=== PATIENT | female | born 1985 | race Caucasian/White ===

== ENCOUNTER 2018-12-27 16:50 | Observation (INO) ==
[2018-12-27] MEDS ORDERED: 0.9 % Sodium Chloride 1,000 ML IVC ONE (17:00)
--- NOTE | 2018-12-27 17:04 | Emergency Department Note ---
Disposition Clinical Impression: Bronchopneumonia Disposition: Admitted As Inpatient Condition: Serious Time of Disposition: 19:09 ( will admit) Chest Pain HPI - General Chief Complaint: ED Chest Pain Stated Complaint: fever and chest pain x 3 days Time Seen by Provider: 12/27/18 16:53 Source: patient Mode of arrival: ambulatory Limitations: no limitations Vital Signs Reviewed: Yes Nursing Notes Reviewed: Yes - History of Present Illness HPI Narrative: 33-year-old female who presents in the emergency department with complaints of fever for approximately 3 days and also ongoing chest pain associated with that. Patient complains of pain with coughing and pain with deep inspiration. She states that she has a history of sarcoidosis, and is on 2 different inhalers. She was taken off her steroids, but denies being on any immunosuppressive medications. Patient is a smoker and smokes approximately 1 pack a day. Patient does complain of some mild shortness of breath. But mostly pain with coughing Onset (ago): day(s) (3) Duration: intermittent Onset: during rest Pain Location: substernal Severity: moderate Severity scale (1-10): 5 Quality: sharp Pain Radiation: none Improves with: nothing Worsens with: nothing Associated symptoms: Reports: dyspnea, fever, cough Treatments prior to arrival chest pain: none - Related Data Home Medications Medication Instructions Recorded Confirmed Fluticasone/Vilanterol [Breo 1 each IH QID 05/12/18 12/27/18 Ellipta 200-25 Mcg INH] Albuterol Sulfate [Ventolin Hfa] 1 puff IH AD PRN 11/13/18 12/27/18 DiphenhydraMINE [Benadryl] 25 mg PO HS 11/13/18 12/27/18 LevETIRAcetam [Keppra] 500 mg PO BID 11/13/18 12/27/18 Allergies Allergy/AdvReac Type Severity Reaction Status Date / Time azithromycin Allergy Seizure Verified 07/09/18 19:46 tramadol [From Ultram] Allergy Seizure Verified 07/09/18 19:46 Constitutional: Denies: fever, chills, weakness, weight change Eyes: Denies: eye pain, eye discharge, vision change ENT ED: Denies: ear pain, throat pain, dental pain, hearing loss, epistaxis, congestion, dysphagia Cardiovascular: Reports: palpitations. Denies: chest pain, dyspnea on exertion, edema, syncope Respiratory: Reports: cough, dyspnea. Denies: wheezes, hemoptysis, stridor Gastrointestinal: Denies: abdominal pain, nausea, vomiting, diarrhea, constipation, hematemesis, melena, hematochezia Genitourinary: Denies: dysuria, frequency, hematuria, discharge Musculoskeletal: Denies: back pain, neck pain, arthralgia, myalgia Integumentary: Denies: rash, abrasion, lesions Neurological: Denies: headache, weakness, numbness, paresthesias, confusion, abnormal gait, vertigo Psychiatric: Denies: anxiety, depression, suicidal thoughts, homicidal thoughts, auditory hallucinations, visual hallucinations Endocrine: Denies: fatigue Hematological/Lymphatic: Denies: easy bleeding, easy bruising Allergic/Immunologic: Denies: facial swelling, urticaria Chest Pain PMH - Past Medical History Medical history: Reports: asthma, seizures, other Psychiatric history: Reports: depression - Social History Smoking Status: Current every day smoker Alcohol use: Reports: none Drug use: Reports: none Physical Exam - General Limitations: no limitations General appearance: alert, in no apparent distress - Head Head exam: atraumatic, normocephalic, normal inspection - Eye Eye exam: Present: normal appearance, PERRL, EOMI - Expanded Eye Exam Pupils: Left: reactive - ENT ENT exam: normal exam, normal oropharynx, mucous membranes moist - Expanded ENT Exam External ear exam: Present: normal external inspection Mouth exam: Present: normal external inspection Teeth exam: Present: normal inspection Throat exam: Present: normal inspection - Neck Neck exam: Present: normal inspection, full ROM, trachea midline - Chest Chest inspection: Present: normal inspection, symmetric chest wall rise - Respiratory Respiratory exam: Present: wheezes, other (Wheezing noted throughout bilateral lung griffin) - Cardiovascular Cardiovascular exam: Present: regular rate, tachycardia, normal heart sounds - Abdominal Exam Abdominal exam: Present: soft, Non-Tender. Absent: tenderness, distention, guarding, rebound, rigidity - Extremities Exam Extremities exam: Present: normal inspection, full ROM. Absent: tenderness, pedal edema - Expanded Upper Extremity Exam Shoulder exam: Present: normal inspection, full ROM Arm exam: Present: normal inspection, full ROM Elbow exam: Present: normal inspection, full ROM Forearm/Wrist exam: Present: normal inspection, full ROM Hand exam: Present: normal inspection, full ROM Vascular exam: Normal: capillary refill, radial pulse - Expanded Lower Extremity Exam Hip/Pelvis exam: Present: normal inspection, full ROM Upper leg exam: Present: normal inspection, full ROM Knee exam: Present: normal inspection, full ROM Lower leg exam: Present: normal inspection, full ROM Ankle exam: Present: normal inspection, full ROM Foot/toe exam: Present: normal inspection, full ROM Neurovascular/Tendon exam: Absent: motor deficit, sensory deficit, tendon deficit - Back Exam Back exam: Present: normal inspection, full ROM. Absent: tenderness - Neurological Exam Neurological exam: Present: alert, oriented X3 - Expanded Neurological Exam Patient oriented to: Present: person, place, time Coma Scale Eye Opening: Spontaneous Coma Scale Motor Response: Obeys Commands Coma Scale Verbal Response: Oriented Coma Scale Total: 15 - Psychiatric Psychiatric exam: Present: normal affect, normal mood - Skin Skin exam: Present: warm, dry, intact, normal color Course Vital Signs Temperature 99.9 F H 12/27/18 16:56 Pulse Rate 116 12/27/18 16:56 Respiratory Rate 18 12/27/18 16:56 Blood Pressure 111/80 12/27/18 16:56 O2 Sat by Pulse Oximetry 94 12/27/18 16:56 Temperature 98.1 F 12/27/18 18:49 Pulse Rate 98 12/27/18 19:18 Respiratory Rate 18 12/27/18 19:18 Blood Pressure 96/60 12/27/18 19:18 O2 Sat by Pulse Oximetry 99 12/27/18 19:18 Oxygen Delivery Oxygen Delivery Nasal Cannula Chest Pain - MDM Narrative Medical decision making narrative: Labs are obtained including blood culture 2 patient initially was given 1 L of fluids wide open, and received a second dose at 125 mL's an hour. After blood culture patient was given Rocephin 2 g IV. She is converted to Levaquin 500 mg IV daily on the floor. Chest x-ray read by radiology was concerning for possible malignancy, as a result CT of chest without contrast obtained which showed patient had pneumonia. - Differential Diagnosis Likely: pneumothorax, atypical chest pain, costalchondritis - Medical Records Medical records reviewed: Yes I reviewed the patient's medical records. - Lab Data Result diagrams: 12/27/18 17:29 12/27/18 17:29 Lab Results 12/27/18 12/27/18 12/27/18 Range/Units 17:29 17:29 17:29 WBC 20.8 H (4.3-11.1) K/mcL RBC 4.15 (3.82-4.97) M/mcL Hgb 12.3 (11.5-15.4) g/dL Hct 36.5 (35.3-44.9) % MCV 88.0 (83.0-100.0) fL MCH 29.6 (28.0-33.3) pg MCHC 33.7 (31.6-35.5) g/dL RDW 12.8 (11.5-14.5) % Plt Count 303 (140-400) K/mcL MPV 10.6 (9.4-12.4) fL Immature Gran % 0.5 (0-4) % Seg Neutrophils % 77.2 % Lymphocytes % 10.4 % Monocytes % 9.9 % Eosinophils % 1.5 % Basophils % 0.5 % Neutrophils # 16.1 H (1.6-8.9) K/mcL Lymphocytes # 2.2 (0.6-4.6) K/mcL Monocytes # 2.1 H (0.0-1.3) K/mcL Eosinophils # 0.3 (0.0-0.6) K/mcL Basophils # 0.1 (0.0-0.2) K/mcL PT 15.4 H (9.4-12.1) Seconds INR 1.4 APTT 34.0 (26.0-36.0) Seconds D-Dimer (0-500) ng/mLFEU Sodium (136-145) mEq/L Potassium (3.5-5.1) mEq/L Chloride (98-107) mEq/L Carbon Dioxide (23-29) mEq/L BUN (6-20) mg/dL Creatinine (0.60-1.20) mg/dL Est GFR ( Amer) (> 60) Est GFR (Non-Af Amer) (> 60) BUN/Creatinine Ratio (6-26) Glucose (70-105) mg/dL Calculated Osmolality (280-300) Lactic Acid (0.5-2.2) mmol/L Calcium (8.6-10.3) mg/dL Troponin I (< 0.04) ng/mL B-Natriuretic Peptide 14 (Less than 100) pg/mL 12/27/18 12/27/18 12/27/18 Range/Units 17:29 17:29 17:29 WBC (4.3-11.1) K/mcL RBC (3.82-4.97) M/mcL Hgb (11.5-15.4) g/dL Hct (35.3-44.9) % MCV (83.0-100.0) fL MCH (28.0-33.3) pg MCHC (31.6-35.5) g/dL RDW (11.5-14.5) % Plt Count (140-400) K/mcL MPV (9.4-12.4) fL Immature Gran % (0-4) % Seg Neutrophils % % Lymphocytes % % Monocytes % % Eosinophils % % Basophils % % Neutrophils # (1.6-8.9) K/mcL Lymphocytes # (0.6-4.6) K/mcL Monocytes # (0.0-1.3) K/mcL Eosinophils # (0.0-0.6) K/mcL Basophils # (0.0-0.2) K/mcL PT (9.4-12.1) Seconds INR APTT (26.0-36.0) Seconds D-Dimer 419 (0-500) ng/mLFEU Sodium 132 L (136-145) mEq/L Potassium 3.3 L (3.5-5.1) mEq/L Chloride 100 (98-107) mEq/L Carbon Dioxide 26 (23-29) mEq/L BUN 6 (6-20) mg/dL Creatinine 0.49 L (0.60-1.20) mg/dL Est GFR ( Amer) > 60 (> 60) Est GFR (Non-Af Amer) > 60 (> 60) BUN/Creatinine Ratio 12 (6-26) Glucose 101 (70-105) mg/dL Calculated Osmolality 272 L (280-300) Lactic Acid 0.7 (0.5-2.2) mmol/L Calcium 8.6 (8.6-10.3) mg/dL Troponin I < 0.03 (< 0.04) ng/mL B-Natriuretic Peptide (Less than 100) pg/mL - Radiology Data Radiology results reviewed: Yes I reviewed the patient's radiology results. Chest x-ray by radiology reading showed an area in the right upper lobe that was concerning for malignancy as a result a CT of chest without contrast was obtained which showed the patient to have a right upper lobe pneumonia and no evidence of malignancy. - EKG Data EKG attestation: Yes I reviewed and interpreted this EKG. EKG results narrative: EKG shows a sinus tachycardic rhythm rate of 116 EKG shows normal: sinus rhythm Rate: tachycardia Rhythm: NSR [place]/QRS: normal
[2018-12-27] MEDS ORDERED: cefTRIAXone 2,000 MG in Water for inj. (sterile) 20 ML 20 ML IVP ONE (17:21)
[2018-12-27 17:39] LABS: Basophils # 0.1 K/mcL (0.0-0.2); Basophils % 0.5 %; Eosinophils # 0.3 K/mcL (0.0-0.6); Eosinophils % 1.5 %; Hematocrit 36.5 % (35.3-44.9); Hemoglobin 12.3 g/dL (11.5-15.4); Immature Granulocytes % 0.5 % (0-4); Lymphocytes # 2.2 K/mcL (0.6-4.6); Lymphocytes % 10.4 %; Mean Corpuscular HGB Conc 33.7 g/dL (31.6-35.5); Mean Corpuscular Hemoglobin 29.6 pg (28.0-33.3); Mean Platelet Volume 10.6 fL (9.4-12.4); Monocytes # 2.1 K/mcL (0.0-1.3); Monocytes % 9.9 %; Neutrophils # 16.1 K/mcL (1.6-8.9); Platelet Count 303 K/mcL (140-400); Red Blood Count 4.15 M/mcL (3.82-4.97); Red Cell Distribution Width 12.8 % (11.5-14.5); Segmented Neutrophils % 77.2 %
[2018-12-27 17:51] LABS: INR 1.4; Prothrombin Time 15.4 Seconds (9.4-12.1)
[2018-12-27 17:58] LABS: BUN/Creatinine Ratio 12 (6-26); Blood Urea Nitrogen 6 mg/dL (6-20); Calcium 8.6 mg/dL (8.6-10.3); Carbon Dioxide 26 mEq/L (23-29); Chloride 100 mEq/L (98-107); Glucose 101 mg/dL (70-105); Osmolality,Calculated 272 (280-300); Potassium 3.3 mEq/L (3.5-5.1); Sodium 132 mEq/L (136-145); Troponin I < 0.03 ng/mL (< 0.04); eGFR For Non-African Americans > 60 (> 60)
[2018-12-27] MEDS ORDERED: Naloxone 0.4 MG/ML INJ IVP PRN ×2 (19:00→20:28)
[2018-12-27] MEDS: levETIRAcetam 250 MG TABLET PO SCH (22:04)
[2018-12-27] MEDS: (Breo Ellipta 200-25 Mcg Inh) IH SCH (23:54)
[2018-12-28] MEDS: *HR* HYDROcodone/Acet 5/325 mg TABLET PO PRN ×4 (03:43→20:00)
[2018-12-28] MEDS: (Breo Ellipta 200-25 Mcg Inh) IH SCH ×4 (05:50→20:00)
[2018-12-28] MEDS: levETIRAcetam 250 MG TABLET PO SCH ×2 (08:23→20:00)
[2018-12-28] MEDS ORDERED: Levofloxacin 500 MG/100 ML 500 MG/100 ML BAG IVPB SCH ×2 (09:00)
--- NOTE | 2018-12-28 10:54 | Electrocardiograph Report ---
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
--- NOTE | 2018-12-28 12:17 | Internal Med History&Physical ---
Date of Encounter: 12/28/18 Time of Encounter: 11:30 Assessment and Plan (1) Pneumonia, community acquired Current visit: Yes Status: Acute She was given Levaquin and Rocephin in emergency room. Rocephin will be continued with IV doxycycline and lactobacillus. Qualifiers: Laterality: right Lung location: upper lobe of lung Qualified Code(s): J18.1 - Lobar pneumonia, unspecified organism (2) Hypokalemia Current visit: Yes Status: Acute Likely secondary to vomiting. Supplemental potassium will be given and labs monitored. (3) Weight loss Current visit: Yes Status: Acute TSH will be checked in a.m. She reports weight loss workup has been ordered by specialist without etiology found. (4) Seizure disorder Current visit: Yes Status: Acute Continue Keppra (5) Asthma Current visit: Yes Status: Chronic Continue inhalers as at home. Qualifiers: Asthma severity: mild Asthma persistence: unspecified Asthma complication type: unspecified Qualified Code(s): J45.909 - Unspecified asthma, uncomplicated Internal Medicine - H&P: HPI Chief complaint: Cough, fever, chest pain Admitted From: Emergency Dept Plans for Post Hospital Care: Home History of present illness: Ms. Carrero is a 33 year old female came to emergency room complaining of 3 day history of fever up to 102.8 F, nonproductive cough, and approximately 4 episodes of vomiting with "black" material seen in the vomitus. CT of chest showed right upper lung pneumonia. She was admitted to [facility] floor for ongoing care needs. Respiratory history is significant for diagnosis of pulmonary sarcoidosis at age 25. She follows with a emotional support teacher in [place]. She has smoked since age 17 up to one and a half packs per day. She has a diagnosis of asthma. She does not use home oxygen. Past Med Surg Social Fam HX - Past Medical History Medical history: asthma, seizures, other Additional medical history: sarcoidosis Psychiatric history: depression - Past Surgical History Additional surgical history: BONE MARROW BIOPSY - Social History Smoking Status: Current every day smoker Packs per day: 1 pack Smokeless Tobacco Status: No Alcohol use: none Drug use: none Internal Medicine - H&P: Meds Fluticasone/Vilanterol [Breo Ellipta 200-25 Mcg INH] 1 each IH QID 05/12/18 [History] Albuterol Sulfate [Ventolin Hfa] 1 puff IH AD PRN 11/13/18 [History] DiphenhydraMINE [Benadryl] 25 mg PO HS 11/13/18 [History] LevETIRAcetam [Keppra] 500 mg PO BID 11/13/18 [History] Allergy/AdvReac Type Severity Reaction Status Date / Time azithromycin Allergy Seizure Verified 07/09/18 19:46 tramadol [From Ultram] Allergy Seizure Verified 07/09/18 19:46 All Systems PM: A 10-system review of systems was performed and is negative for pertinent findings except as documented above in the HPI. Review of systems: Gen.: She states her weight has decreased from 275 pounds to present weight of 140 pounds over 6 months. No previous weights are available to verify this. Cardiovascular: She denies hypertension [place] heart failure angina DVT or pulmonary embolus Respiratory: As per history of present illness GI: She has had appendectomy. She denies disorders of her liver gallbladder or exocrine pancreas : She has had hysterectomy and unilateral oophorectomy. She denies other ki dney or bladder disorders. Neurologic: She had grand mal seizures onset at age 10. She is on Keppra and follows with a [place] neurologist. She reports her last seizure was approximately 2011. She denies strokes other neurologic disorders Endocrine: She denies diabetes thyroid disease or hyperlipidemia Hematology/oncology: She states she has been diagnosed with "leukemia" although 2 bone marrow exams have not shown significant pathology. She follows with a hematology/oncologist regularly. She denies other blood disorders or malignancies Psychiatric: She has bipolar disorder. [place] skeletal: She denies arthritis gout or other bone joint or muscle disorders. - Constitutional Vitals: Temp Pulse Resp BP Pulse Ox 98.7 F 95 17 105/71 96 12/28/18 11:34 12/28/18 11:34 12/28/18 06:52 12/28/18 11:34 12/28/18 11:34 Exam: Gen.: She is a well-developed well-nourished female lying in bed who appears in no significant distress HEENT: Head is atraumatic and normocephalic. Eyes: EOMI. There is no scleral icterus. Mouth: Mucosa is moist. Neck: Supple and nontender. There is no thyromegaly or adenopathy noted. Heart: Regular without murmurs gallops or ectopics Lungs: No wheezes or crackles are heard. Abdomen: Soft and nontender. No masses or guarding are noted. Extremities: There is no cyanosis edema or clubbing noted. Dorsalis pedis and posttibial pulses are 1-2 over 2 bilaterally. Neurologic: Mental status: She is talkative and a good historian. Cranial nerves: Smile is symmetric. Forehead wrinkles bilaterally. Tongue protrudes midline. EOMI. Motor: There is no pronator drift. Cerebellar: Finger to nose is intact bilaterally. Skin: Warm and dry Internal Med - H&P Results - Labs CBC & Chem 7: 12/27/18 17:29 12/27/18 17:29 Labs: Short CBC 12/27/18 Range/Units 17:29 WBC 20.8 H (4.3-11.1) K/mcL Hgb 12.3 (11.5-15.4) g/dL Hct 36.5 (35.3-44.9) % Plt Count 303 (140-400) K/mcL Neutrophils # 16.1 H (1.6-8.9) K/mcL BMP 12/27/18 17:29 Sodium 132 L Potassium 3.3 L Chloride 100 Carbon Dioxide 26 BUN 6 Creatinine 0.49 L Glucose 101 Calcium 8.6 Cardiac Enzymes 12/27/18 Range/Units 17:29 Troponin I < 0.03 (< 0.04) ng/mL - Impressions ITS Impressions Chest X-Ray 12/27/18 16:57 IMPRESSION: Interval worsening in masslike pulmonary opacity within the right upper lobe and right lung apex. Possibility of malignancy should be excluded. Worsening atypical pneumonia is a differential consideration. Recommend follow-up CT chest with intravenous contrast. D/ / 12/27/2018 17:46:55 Sean Christy MD / [email or web address] Interpreting Provider: Sean Christy MD Chest CT 12/27/18 17:56 IMPRESSION: Right upper lobe consolidation consistent with pneumonia. D/ / Erik Yoder / Erik Yoder Interpreting Provider: Erik Yoder
[2018-12-28] MEDS: 0.45 % Sodium Chloride w/KCl 20 MEQ/1,000 ML MLS IVC SCH (13:18)
[2018-12-28] MEDS: cefTRIAXone 1,000 MG in Water for inj. (sterile) 20 ML 10 ML IVP SCH (13:19)
[2018-12-28] MEDS: Doxycycline 100 MG in 0.9 % Sodium Chloride Mini Bag 100 ML IVPB SCH (17:13)
[2018-12-28] MEDS: Nicotine 21 MG PATCH.TD24 TD SCH (18:54)
[2018-12-28] MEDS: Lactobacillus 1 EACH CAP.SPRINK PO SCH (20:00)
[2018-12-29] MEDS: *HR* HYDROcodone/Acet 5/325 mg TABLET PO PRN ×2 (04:11→11:03)
[2018-12-29] MEDS: 0.45 % Sodium Chloride w/KCl 20 MEQ/1,000 ML MLS IVC SCH (04:13)
[2018-12-29] MEDS: Doxycycline 100 MG in 0.9 % Sodium Chloride Mini Bag 100 ML IVPB SCH (06:08)
[2018-12-29] MEDS: (Breo Ellipta 200-25 Mcg Inh) IH SCH ×2 (06:15→10:25)
[2018-12-29 07:00] VITALS: BP 99/62
[2018-12-29 07:11] LABS: Basophils # 0.1 K/mcL (0.0-0.2); Basophils % 0.5 %; Eosinophils # 0.5 K/mcL (0.0-0.6); Hematocrit 34.6 % (35.3-44.9); Hemoglobin 11.6 g/dL (11.5-15.4); Immature Granulocytes % 0.2 % (0-4); Mean Corpuscular HGB Conc 33.5 g/dL (31.6-35.5); Mean Corpuscular Hemoglobin 29.7 pg (28.0-33.3); Mean Corpuscular Volume 88.5 fL (83.0-100.0); Mean Platelet Volume 10.5 fL (9.4-12.4); Monocytes # 1.2 K/mcL (0.0-1.3); Monocytes % 9.8 %; Platelet Count 312 K/mcL (140-400); Red Blood Count 3.91 M/mcL (3.82-4.97); Red Cell Distribution Width 12.9 % (11.5-14.5); Segmented Neutrophils % 68.5 %
[2018-12-29 07:58] LABS: Thyroid Stimulating Hormone 2.032 mcIU/mL (0.340-5.600)
[2018-12-29 08:18] LABS: Magnesium 1.9 mg/dL (1.6-2.6)
[2018-12-29 08:19] LABS: Alanine Aminotransferase 10 Units/L (7-52); Albumin 3.4 g/dL (3.5-5.7); Albumin/Globulin Ratio 1.1 (1.1-2.2); Alkaline Phosphatase 80 Units/L (34-104); Aspartate Amino Transferase 10 Units/L (13-39); BUN/Creatinine Ratio 6 (6-26); Bilirubin,Total 0.4 mg/dL (0.3-1.0); Blood Urea Nitrogen 3 mg/dL (6-20); Calcium 8.7 mg/dL (8.6-10.3); Carbon Dioxide 27 mEq/L (23-29); Chloride 104 mEq/L (98-107); Glucose 103 mg/dL (70-105); Osmolality,Calculated 283 (280-300); Potassium 3.4 mEq/L (3.5-5.1); Sodium 138 mEq/L (136-145); Total Protein 6.4 g/dL (6.4-8.9); eGFR For Non-African Americans > 60 (> 60)
--- NOTE | 2018-12-29 10:11 | Discharge Summary ---
Orders not resulted at time of discharge: Pending orders 12/27/18 17:29 Culture,Blood [BC] Stat Date of Encounter: 12/29/18 Time of Encounter: 10:00 - Discharge Diagnosis (1) Pneumonia, community acquired Priority: Primary Status: Acute Qualifiers: Laterality: right Lung location: upper lobe of lung Qualified Code(s): J18.1 - Lobar pneumonia, unspecified organism (2) Hypokalemia Priority: Secondary Status: Acute (3) Weight loss Priority: Secondary Status: Acute (4) Seizure disorder Priority: Secondary Status: Chronic (5) Asthma Priority: Secondary Status: Chronic Qualifiers: Asthma severity: mild Asthma persistence: unspecified Asthma complication type: unspecified Qualified Code(s): J45.909 - Unspecified asthma, uncomplicated Hospital course: Ms. Carrero is a 33 year old female who came to emergency room complaining of 3 day history of fever up to 102.8 F, nonproductive cough, and approximately 4 episodes of vomiting with "black" material seen in the vomitus. CT of chest showed right upper lung pneumonia. She was admitted to [facility] for ongoing care needs. Initial orders were written by the emergency room physician. I saw her on December 28 and performed a history and physical. She was given IV Levaquin and Rocephin in emergency room. I continued Rocephin but changed Levaquin to IV doxycycline. Lactobacillus was given. She had significant clinical improvement with WBC decreasing to 11.7 by December 29 with resolution of left shift. She felt improved clinically when I saw her on December 29 and stable for discharge home. She will continue with antibiotic and probiotic for 5 additional days. Supplemental potassium was given and potassium [place] to 3.4 by day of discharge. She will be given an additional 20 mEq of KCl prior to discharge. Her PCP can monitor labs. She will follow with her PCP Graham Wan CNP within 1 week. - Time Spent with Patient Total time spent providing and/or coordinating discharge services: - Discharge Medications Prescriptions: New Cefuroxime PO [Ceftin] 500 mg PO Q12HR #10 tablet Lactobacillus [Culturelle] 1 each PO BID #10 cap.sprink Doxycycline 100 mg PO BID #10 capsule Continued Fluticasone/Vilanterol [Breo Ellipta 200-25 Mcg INH] 1 each IH QID DiphenhydraMINE [Benadryl] 25 mg PO HS LevETIRAcetam [Keppra] 500 mg PO BID Albuterol Sulfate [Ventolin Hfa] 1 puff IH AD PRN PRN Reason: Wheezing Home Medications: Fluticasone/Vilanterol [Breo Ellipta 200-25 Mcg INH] 1 each IH QID 05/12/18 [History] Albuterol Sulfate [Ventolin Hfa] 1 puff IH AD PRN 11/13/18 [History] DiphenhydraMINE [Benadryl] 25 mg PO HS 11/13/18 [History] LevETIRAcetam [Keppra] 500 mg PO BID 11/13/18 [History] Cefuroxime PO [Ceftin] 500 mg PO Q12HR #10 tablet 12/29/18 [Rx] Doxycycline 100 mg PO BID #10 capsule 12/29/18 [Rx] Lactobacillus [Culturelle] 1 each PO BID #10 cap.sprink 12/29/18 [Rx] Allergies/Adverse Reactions: Allergy/AdvReac Type Severity Reaction Status Date / Time azithromycin Allergy Seizure Verified 07/09/18 19:46 tramadol [From Ultram] Allergy Seizure Verified 07/09/18 19:46 Date of admission: 12/27/18 19:09 Primary care physician: Graham Wan Consults: 12/27/18 19:56 Consult to Nutrition [CONS] Routine Comment: Consulting Provider: NUTRITION Reason for Dietary Consult: MST Score - Constitutional Vitals: Temp Pulse Resp BP Pulse Ox 98 F 80 18 99/62 95 12/29/18 06:58 12/29/18 06:58 12/29/18 04:05 12/29/18 06:58 12/29/18 06:58 - Patient Status Disposition: Home, Self-Care Condition: Serious - Discharge Instructions Follow Up With: Graham Kearney, [employer] [Primary Care Provider] - 1 week - Diet and Activity Activity: resume usual activities as tolerated Diet: advance to your usual diet
[2018-12-29] MEDS: levETIRAcetam 250 MG TABLET PO SCH (10:23)
[2018-12-29] MEDS: Lactobacillus 1 EACH CAP.SPRINK PO SCH (10:24)
[2018-12-29] MEDS: Nicotine 21 MG PATCH.TD24 TD SCH (10:24)
[2018-12-29] MEDS: cefTRIAXone 1,000 MG in Water for inj. (sterile) 20 ML 10 ML IVP SCH (10:25)
== END 2018-12-29 11:21 | disposition home or self-care (01) ==
LOC: EMEROOPIK 16:50 → INPPIK 16:50
PROVIDERS: ADMIT Internal Medicine; ATTEND Internal Medicine